=== PATIENT | male | born 1985 | race Caucasian/White ===

== ENCOUNTER 2017-06-18 07:56 | Emergency (ER) | payer BC ==
[2017-06-18] MEDS ORDERED: Lidocaine 1% w/Epinephrine 1:100K 20 ML VIAL ONE (09:03)
== END 2017-06-18 10:09 | disposition home or self-care (01) ==
LOC: ERS 07:56
DX: L05.01 Pilonidal cyst with abscess (principal); L03.317 Cellulitis of buttock; F17.210 Nicotine dependence, cigarettes, uncomplicated
CPT/HCPCS: 10080; J2001

== ENCOUNTER 2018-07-31 06:45 | Day surgery (SDC) | payer OTHER ==
[2018-07-30 12:26] VITALS: BMI 24.3
[2018-07-31] MEDS ORDERED: Midazolam HCl 2 mg/2 ml Vial ONE (07:13)
[2018-07-31] MEDS ORDERED: Fentanyl 100 MCG/2 ML VIAL ONE ×3 (07:13→09:21)
[2018-07-31] MEDS ORDERED: Dexamethasone 4 mg/ml Vial ONE (07:22)
[2018-07-31] MEDS ORDERED: Bupivacaine HCl 0.5%/Epinephrine 1:200,000/PF 30 ml Vial ONE ×2 (08:00→16:07)
[2018-07-31] MEDS ORDERED: Ketorolac Tromethamine 30 MG/ML VIAL ONE (09:42)
--- NOTE | 2018-07-31 14:25 | OP ---
DATE OF PROCEDURE: 07/31/2018 PROCEDURE PERFORMED: Open reduction and internal fixation of left medial malleolus ankle fracture. PREOPERATIVE DIAGNOSIS: Displaced left medial malleolar ankle fracture. POSTOPERATIVE DIAGNOSIS: Displaced left medial malleolar ankle fracture. COMPLICATIONS: None. ESTIMATED BLOOD LOSS: Minimal. ANESTHESIA: General plus local. IMPLANTS: Two Synthes 4.0 partially-threaded cancellous screws were utilized. INDICATIONS: Mr. Herring is a 33-year-old male, who was injured at work. He fractured his left medial malleolus of the ankle. He had a minimally displaced right talar dome fracture. He has been indicated for fixation of his left ankle to restore anatomic alignment and promote healing. Risks have been reviewed in detail. He elected to proceed with the operation. DESCRIPTION OF PROCEDURE: Mr. Herring was identified in the preoperative holding area. His correct extremity was marked. He was carried to the operating room. He was positioned supine. General anesthesia was induced. A multidisciplinary time-out was performed. The left lower extremity was prepped and draped in sterile fashion. We began the procedure with a medial ankle incision. We dissected down through the subcutaneous tissues to the fascia, which was opened. We explored the fracture. We irrigated the joint and removed hematoma. We then reduced the medial malleolar fracture back into its anatomic position with a reduction clamp. At this point, we placed a K-wire across the fracture, stabilizing it. We then placed a 4.0 mm cancellous screw, partially threaded, across the fracture, an additional screw was placed. We took images, confirming reduction and alignment. There was no hardware complication. We then stressed the ankle. There was no widening. At this point, we thoroughly irrigated with copious lavage. We then closed appropriately in layers and placed the patient in his boot. He was taken to the recovery room in good condition. Job ID: [id number]
--- NOTE | 2018-07-31 14:28 | RAD ---
LEFT ANKLE THREE VIEWS: HISTORY: Left ankle fracture. COMPARISON: 07/27/2018 TECHNIQUE: Three limited intraoperative fluoroscopic views of the left ankle were submitted for interpretation. FINDINGS/IMPRESSION: Two screws are seen in the medial malleolus. No perihardware lucency is seen. POS: [facility]
[2018-07-31] MEDS ORDERED: PROPOFOL 200 MG/20 ML VIAL ONE (16:35)
[2018-07-31] MEDS ORDERED: Ondansetron PF 4 MG/2 ML Vial ONE (16:35)
[2018-07-31] MEDS ORDERED: Lidocaine 1% PF 5 ML VIAL ONE (16:35)
[2018-07-31] MEDS ORDERED: Dexamethasone 20 MG/5 ML VIAL ONE (16:35)
== END 2018-07-31 11:30 | disposition home or self-care (01) ==
LOC: SDC 06:45
PROVIDERS: ATTEND Orthopaedic Surgery
PROC: 3E0T33Z Introduction of Anti-inflammatory into Peripheral Nerves and Plexi, Percutaneous Approach (ICD-10-PCS; principal; 2018-07-31)
PROC: 0QSH04Z Reposition Left Tibia with Internal Fixation Device, Open Approach (ICD-10-PCS; principal; 2018-07-31)
PROC: 3E0T3BZ Introduction of Anesthetic Agent into Peripheral Nerves and Plexi, Percutaneous Approach (ICD-10-PCS; principal; 2018-07-31)
DX: S82.52XA Displaced fracture of medial malleolus of left tibia, initial encounter for closed fracture (principal); S92.141A Displaced dome fracture of right talus, initial encounter for closed fracture; G89.18 Other acute postprocedural pain; F17.200 Nicotine dependence, unspecified, uncomplicated; Z79.1 Long term (current) use of non-steroidal anti-inflammatories (NSAID); Z79.891 Long term (current) use of opiate analgesic; W17.89XA Other fall from one level to another, initial encounter; Y99.0 Civilian activity done for income or pay
CPT/HCPCS: 76000; C1713; J0670; J0690; J1100; J1885; J2001; J2250; J2405; J2704; J3010

== ENCOUNTER 2019-07-01 11:30 | Day surgery (SDC) | payer OTHER ==
[2019-06-29 13:58] VITALS: BMI 22.8
[2019-07-01] MEDS ORDERED: Fentanyl 100 MCG/2 ML VIAL ONE ×3 (11:54→13:26)
[2019-07-01] MEDS ORDERED: Famotidine/PF 20 mg/2ml Vial ONE (11:54)
[2019-07-01] MEDS ORDERED: Midazolam HCl 2 mg/2 ml Vial ONE (11:54)
[2019-07-01] MEDS ORDERED: Lidocaine 1% (PF) 30 ML VIAL ONE (11:59)
[2019-07-01] MEDS ORDERED: Betamet Acet/Betamet Na Ph 30 MG/5 ML VIAL ONE (12:17)
[2019-07-01] MEDS ORDERED: Bupivacaine PF 0.5% 30 ML VIAL ONE (12:45)
[2019-07-01] MEDS ORDERED: Ondansetron PF 4 MG/2 ML Vial ONE (13:35)
[2019-07-01] MEDS ORDERED: Rocuronium Bromide 10 MG/ML (10ML VIAL) ONE (13:35)
[2019-07-01] MEDS ORDERED: Succinylcholine Chloride 20 MG/ML 10 ml SYRINGE FS ONE (13:35)
[2019-07-01] MEDS ORDERED: Ketorolac Tromethamine 30 MG/ML VIAL ONE (13:35)
[2019-07-01] MEDS ORDERED: Metoclopramide HCl 10 MG/2 ML VIAL ONE (13:35)
[2019-07-01] MEDS ORDERED: Lidocaine 1% PF 5 ML VIAL ONE (13:35)
[2019-07-01] MEDS ORDERED: PROPOFOL 200 MG/20 ML VIAL ONE (13:35)
[2019-07-01] MEDS ORDERED: Dexamethasone 20 MG/5 ML VIAL ONE (13:35)
[2019-07-01] MEDS ORDERED: Glycopyrrolate 0.2 MG/ML 5 ML SYRINGE ONE (13:35)
--- NOTE | 2019-07-01 13:36 | RAD ---
LEFT ANKLE TWO VIEWS: 07/01/19 HISTORY: Hardware removal. FINDINGS/IMPRESSION: Two spot fluoroscopic images of the left ankle demonstrate interval removal of the two screws noted o n the exam of 07/31/18 in the medial malleolus. POS: [facility]
--- NOTE | 2019-07-01 19:19 | OP ---
DATE OF PROCEDURE: 07/01/2019 OPERATION: Left ankle hardware removal. PREOPERATIVE DIAGNOSIS: History of left ankle fracture with painful hardware. POSTOPERATIVE DIAGNOSIS: History of left ankle fracture with painful hardware. COMPLICATIONS: None. ESTIMATED BLOOD LOSS: Minimal. CLIPPER COUNTERS: medical assistant dermatology: None. IMPLANTS: None. INDICATIONS: Mr. Herring is a 34-year-old male who has injured his ankle. He had an ankle fracture, treated operatively with open reduction and internal fixation. He has been indicated now for hardware removal from the ankle. Risks have been reviewed in detail. He has elected to proceed with the operation. DESCRIPTION OF PROCEDURE: Mr. Herring was identified in the preoperative holding area. His correct extremity was marked. He was carried to the operating room. He was positioned supine. General anesthesia was induced. A multidisciplinary time-out was performed. The left lower extremity was prepped and draped in sterile fashion. We began the procedure with a medial incision. We dissected down through the subcutaneous tissues to the fascia. We incised the tissue over the medial malleolus. We identified two screws in the medial malleolus. These were backed out with an appropriate screwdriver. We took x-ray images confirming hardware was removed. The fracture was well healed. We irrigated and closed appropriately in layers. A sterile dressing was applied. The patient was taken to the recovery room in good condition. Job ID: [id number]
== END 2019-07-01 15:05 | disposition home or self-care (01) ==
LOC: SDC 11:30
PROVIDERS: ATTEND Orthopaedic Surgery
PROC: 0QPH04Z Removal of Internal Fixation Device from Left Tibia, Open Approach (ICD-10-PCS; principal; 2019-07-01)
DX: T84.84XA Pain due to internal orthopedic prosthetic devices, implants and grafts, initial encounter (principal)
CPT/HCPCS: 76000; J0690; J0702; J1100; J1885; J2001; J2250; J2405; J2704; J2765; J3010; S0020; S0028